=== PATIENT | male | born 1995 ===

== ENCOUNTER 2016-10-06 19:19 | Emergency (ER) | payer BC ==
[~2016-10-06] VITALS: Ht 180.3 cm; Wt 74.1 kg
[~2016-10-06 19:19] MED LIST: ADDERALL30 MG PO
[2016-10-06 19:23] VITALS: TEMP 97.6
[2016-10-06 20:53] VITALS: BP 148/76; PULSE 67
== END 2016-10-06 20:54 | disposition home or self-care (01) ==
LOC: COL.ER 19:19
DX: S01.511A Laceration without foreign body of lip, initial encounter (principal); R55 Syncope and collapse; W01.190A Fall on same level from slipping, tripping and stumbling with subsequent striking against furniture, initial encounter; Y92.003 Bedroom of unspecified non-institutional (private) residence as the place of occurrence of the external cause